=== PATIENT | male | born 1960 | race Caucasian/White ===

== ENCOUNTER 2017-08-25 10:49 | Emergency (ER) | payer BC ==
[~2017-08-25] VITALS: Ht 170.2 cm; Wt 81.8 kg
[2017-08-25] MEDS ORDERED: METF500T4 PO (10:54)
[2017-08-25] MEDS ORDERED: FINA5TAB41 PO (10:54)
[2017-08-25 11:03] LABS: GLUCOSE,POINT OF CARE 152 MG/DL (70-110)
[2017-08-25] MEDS ORDERED: FLUORESCEIN SODIUM 1 MG STRIP ONE (11:20)
[2017-08-25] MEDS ORDERED: PROPARACAINE HCL 0.5% 15 ML OPHTHALMIC SOLUTION OU ONE (11:30)
[2017-08-25] MEDS ORDERED: CYCLOPENTOLATE HCL OU ONE (12:45)
[2017-08-25] MEDS ORDERED: CYCLOPENTOLATE HCL 1% 2 ML OPHTHALMIC SOLUTION OU ONE (13:15)
[2017-08-25] MEDS ORDERED: TraMADol HCL 50 MG TABLET PO ONE (13:30)
[2017-08-25 14:04] VITALS: BP 144/92
== END 2017-08-25 14:30 | disposition home or self-care (01) ==
LOC: EMS 10:52
DX: Z77.098 Contact with and (suspected) exposure to other hazardous, chiefly nonmedicinal, chemicals (principal); H57.8 Other specified disorders of eye and adnexa; E11.9 Type 2 diabetes mellitus without complications
CPT/HCPCS: 82962; 99284